=== PATIENT | male | born 1995 | race American Indian/Alaskan Native ===

== ENCOUNTER 2016-09-06 05:00 | Emergency (ER) | payer BC ==
[2016-09-06] MEDS ORDERED: TYLENOL ONE (05:17)
[2016-09-06] MEDS ORDERED: TYLENOL PO ONE (06:03)
[2016-09-06 06:16] VITALS: BP 144/94
== END 2016-09-06 08:12 | disposition left against medical advice (07) ==
LOC: ED 05:00
DX: H92.02 Otalgia, left ear (principal); Z53.21 Procedure and treatment not carried out due to patient leaving prior to being seen by health care provider

== ENCOUNTER 2016-09-07 01:16 | Emergency (ER) | payer BC ==
[2016-09-07] MEDS ORDERED: TYLENOL ONE (03:07)
[2016-09-07] MEDS ORDERED: TYLENOL PO ONE (03:07)
[2016-09-07] MEDS ORDERED: ROCEPHIN IM ONE (08:03)
[2016-09-07] MEDS ORDERED: DECADRON IM ONE (08:03)
[2016-09-07] MEDS ORDERED: XYLOCAINE 1% MPF 5 mL INFILTRATI ONE (08:03)
[2016-09-07] MEDS ORDERED: COLACE OTIC ONE (08:05)
--- NOTE | 2016-09-07 08:07 | Emergency Department Report ---
ED ENT HPI - General Chief complaint: Earache Stated complaint: L EAR SWELLING/DISCHARGE Time Seen by Provider: 09/07/16 07:45 Source: patient Mode of arrival: Ambulatory Limitations: No Limitations - History of Present Illness MD complaint: ear pain -: Gradual Location: R ear, L ear Severity: moderate Quality: aching, sharp Consistency: constant Improves with: none Worsens with: none Associated Symptoms: discharge from ear. denies: fever, cough, gum swelling, toothache, pain with swallowing, sore throat, tinnitus, hearing loss, rhinorrhea - Related Data Previous Rx's Medication Instructions Recorded Last Taken Type Ranitidine HCl [Zantac 150 MG TAB] 150 mg PO BID #30 tablet 01/29/15 Unknown Rx Amoxicillin [Trimox CAP] 500 mg PO BID #20 capsule 09/07/16 Unknown Rx Cipro/Dexameth 0.3/0.1% [Ciprodex 4 drops OT BID #1 bottle 09/07/16 Unknown Rx OTIC] methylPREDNISolone [Medrol] 4 mg PO DAILY #1 tab.ds.pk 09/07/16 Unknown Rx Allergies Allergy/AdvReac Type Severity Reaction Status Date / Time No Known Allergies Allergy Unverified 01/29/15 02:52 ED Dental HPI - General Chief complaint: Earache Stated complaint: L EAR SWELLING/DISCHARGE Time Seen by Provider: 09/07/16 07:45 Source: patient Mode of arrival: Ambulatory Limitations: No Limitations - Related Data Previous Rx's Medication Instructions Recorded Last Taken Type Ranitidine HCl [Zantac 150 MG TAB] 150 mg PO BID #30 tablet 01/29/15 Unknown Rx Amoxicillin [Trimox CAP] 500 mg PO BID #20 capsule 09/07/16 Unknown Rx Cipro/Dexameth 0.3/0.1% [Ciprodex 4 drops OT BID #1 bottle 09/07/16 Unknown Rx OT[facility]] methylPREDNISolone [Medrol] 4 mg PO DAILY #1 tab.ds.pk 09/07/16 Unknown Rx Allergies Allergy/AdvReac Type Severity Reaction Status Date / Time No Known Allergies Allergy Unverified 01/29/15 02:52 ED Review of Systems ROS: Stated complaint: L EAR SWELLING/DISCHARGE Other details as noted in HPI Comment: All other systems reviewed and negative Constitutional: no symptoms reported, see HPI. denies: chills, fever Eyes: as per HPI. denies: eye pain, eye discharge ENT: as per HPI, ear pain. denies: throat pain, dental pain, hearing loss, epistaxis, congestion Respiratory: no symptoms reported, see HPI. denies: cough, orthopnea Cardiovascular: as per HPI. denies: chest pain, palpitations, dyspnea on exertion, orthopnea Endocrine: no symptoms reported, see HPI. denies: excessive sweating, flushing , intolerance to cold, intolerance to heat Gastrointestinal: as per HPI. denies: abdominal pain, nausea, vomiting Genitourinary: as per HPI. denies: urgency, dysuria Musculoskeletal: as per HPI. denies: back pain Skin: as per HPI. denies: rash, lesions Neurological: as per HPI. denies: headache, weakness Psychiatric: as per HPI. denies: anxiety, depression Hematological/Lymphatic: as per HPI. denies: easy bleeding ED Past Medical Hx - Past Medical History Previous Medical History?: No - Surgical History Past Surgical History?: No - Family History Family history: no significant (DENIES BEING ON ZANTAC) - Social History Smoking Status: Never Smoker Substance Use Type: None - Medications Home Medications: Home Medications Medication Instructions Recorded Confirmed Last Taken Type Ranitidine HCl [Zantac 150 MG TAB] 150 mg PO BID #30 tablet 01/29/15 Unknown Rx Amoxicillin [Trimox CAP] 500 mg PO BID #20 capsule 09/07/16 Unknown Rx Cipro/Dexameth 0.3/0.1% [Ciprodex 4 drops OT BID #1 bottle 09/07/16 Unknown Rx OT[facility]] methylPREDNISolone [Medrol] 4 mg PO DAILY #1 tab.ds.pk 09/07/16 Unknown Rx ED Physical Exam - General Limitations: No Limitations General appearance: alert, in no apparent distress - Head Head exam: Present: atraumatic - Eye Eye exam: Present: normal appearance, PERRL, EOMI - ENT ENT exam: Present: mucous membranes moist - Expanded ENT Exam Expanded TM/Canal exam: Erythema: Right TM, Left TM, Loss of Landmarks: Left TM, Cerumen Impaction: Right TM, Canal Discharge: Left TM, Canal Tenderness: Right TM, Left TM Mouth exam: Present: normal external inspection, tongue normal. Absent: drooling, trismus, muffled voice, tongue elevation, laceration Teeth exam: Present: normal inspection. Absent: dental caries Throat exam: Positive: normal inspection. Negative: tonsillar erythema, tonsillomegaly, tonsillar exudate, R peritonsillar mass, L peritonsillar mass - Neck Neck exam: Present: normal inspection. Absent: tenderness, meningismus - Respiratory Respiratory exam: Present: normal lung sounds bilaterally. Absent: respiratory distress, wheezes, rales, rhonchi, stridor - Cardiovascular Cardiovascular Exam: Present: regular rate, normal rhythm, other (NO HX HTN. STATES BC HE IS IN PAIN). Absent: bradycardia, tachycardia - GI/Abdominal GI/Abdominal exam: Present: soft - Rectal Rectal exam: Present: deferred - Extremities Exam Extremities exam: Present: normal inspection - Back Exam Back exam: Present: normal inspection - Neurological Exam Neurological exam: Present: alert, altered, oriented X3, CN II-XII intact, normal gait, reflexes normal. Absent: abnormal gait, motor sensory deficit - Psychiatric Psychiatric exam: Present: normal affect, normal mood. Absent: depressed, agitated - Skin Skin exam: Present: warm, dry, intact, normal color, rash ED Course Vital Signs 09/07/16 09/07/16 09/07/16 01:28 05:41 09:45 Temperature 98.9 F 98.6 F 98.6 F Pulse Rate 90 83 97 H Respiratory 16 16 Rate Blood Pressure 169/104 153/99 Blood Pressure 140/98 [Left] O2 Sat by Pulse 99 98 97 Oximetry - Reevaluation(s) Reevaluation #1: 09/07/16 08:37 MEDICATED EAR FLUSHED NO HX HTN. STATES PAIN CAUSING HIM TO BE AGITATED AND MAKING BP HIGH. YOUNG OTHERWISE HEALTHY 09/07/16 08:57 not in room when staff went to give him meds etc. ED Medical Decision Making - Medical Decision Making VSS NAD NON ILL APPEARING NO FEVER PAIN FROM B EAR INFECTION/IMPACTION Critical care attestation.: If time is entered above; I have spent that time in minutes in the direct care of this critically ill patient, excluding procedure time. ED Disposition Clinical Impression: Otitis externa, Otitis media, Cerumen impaction Disposition: - TO HOME OR SELFCARE Is pt being admited?: No Does the pt Need Aspirin: No Condition: Stable Instructions: Otitis Externa (ED), Cerumen Impaction (ED), Otitis Media (ED) Additional Instructions: NOTHING IN EAR OTHER THAN MEDS ORDERED ONCE INFECTION CLEARS USE CERUMENEX OVER THE COUNTER TO PREVENT WAX BUILD UP MEDS ORDERED TODAY FOLLOW UP ENT IF PERSISTS THE MEDS WILL HELP WITH PAIN MOTRIN OR TYLENOL MAY ALSO BE USED Prescriptions: Amoxicillin [Trimox CAP] 500 mg PO BID #20 capsule Cipro/Dexameth 0.3/0.1% [Ciprodex OTIC] 4 drops OT BID #1 bottle methylPREDNISolone [Medrol] 4 mg PO DAILY #1 tab.ds.pk Referrals: PRIMARY CARE, [Primary Care Provider] - 3-5 Days MILEY CALZADA MD [Staff Physician] - 3-5 Days Time of Disposition: 08:40
[2016-09-07 09:46] VITALS: BP 140/98
== END 2016-09-07 09:45 | disposition home or self-care (01) ==
LOC: ED 01:16
DX: H60.93 Unspecified otitis externa, bilateral (principal); H66.93 Otitis media, unspecified, bilateral; H61.23 Impacted cerumen, bilateral
CPT/HCPCS: 96372; 99282; J0696; J1100

== ENCOUNTER 2017-10-06 12:30 | Emergency (ER) | payer BC ==
[2017-10-06 12:45] VITALS: BP 147/95
== END 2017-10-06 12:44 | disposition left against medical advice (07) ==
LOC: ED 12:30
DX: R11.11 Vomiting without nausea (principal); Z53.21 Procedure and treatment not carried out due to patient leaving prior to being seen by health care provider